=== PATIENT | female | born 1965 | race Caucasian/White ===

== ENCOUNTER 2025-06-12 23:06 | Emergency (ER) | payer OTHER, SELFPAY ==
[2025-06-12 23:26] VITALS: BP 146/84
--- NOTE | 2025-06-12 23:52 | ED.GENMED ---
History of Present Illness
General
Chief Complaint: Ear Problem
Source: patient
Exam Limitations: none
Time Seen by Provider: 06/12/25 23:30
Nursing documentation reviewed up to this point in time: agreed with
History of Present Illness
History of Present Illness:
60-year-old female past ministry of diabetes heart disease presenting to the emergency department today with concerns of right-sided ear discomfort. Has had some mild upper respiratory symptoms over the past few days now with worsening ear pain
today. She denies any chest pain shortness of breath nausea vomiting.
Review of Systems
Review of Systems
Allergies reviewed?: Yes
All Other Systems: ROS reviewed and negative except as documented in HPI and ROS
Phy Exam
Physical Exam
Physical Exam:
GENERAL: Alert , in no apparent distress
EYE: pupils equal and reactive
NECK: Supple, no significant adenopathy.
ENT: Bulging red right tympanic membrane ear canals are normal in appearance normal external ear. Does have postnasal drip and swollen boggy nasal turbinates o/p clr, mmm.
CARDIAC: Regular rate and rhythm .
LUNGS: Clear breath sounds bilaterally, no acute respiratory distress, no wheezes/rales/rhonchi
ABDOMEN: Soft, without focal tenderness, no r/g, no cvat
NEUROLOGICAL: Alert and oriented, no focal neuro deficits
SKIN: Warm and dry, skin intact.
MUSCULOSKELETAL: No edema, well perfused.
PSYCH: Normal and appropriate interaction.
Course
Orders/Labs/Results
Orders:
Orders
06/12/25 23:50
Amoxicillin 875 mg/Clav 125 mg [Augmentin 875 mg/125 mg] 1 tablet PO NOW STA
Vital Signs
Initial and Last Documented VS:
Initial Vital Signs
Temp Pulse Resp BP Pulse Ox
97.5 F 65 18 146/84 98
06/12/25 23:26 06/12/25 23:26 06/12/25 23:26 06/12/25 23:26 06/12/25 23:26
Last Documented Vital Signs
Temp Pulse Resp BP Pulse Ox
97.5 F 65 18 146/84 98
06/12/25 23:26 06/12/25 23:26 06/12/25 23:26 06/12/25 23:26 06/12/25 23:26
MDM/Problems Addressed
MDM/Problems Addressed:
60-year-old female presenting with concerns of right ear pain. Has had mild upper respiratory symptoms over the past few days as well as congestion. On arrival vital signs are normal patient no distress. Patient has obvious redness bulging and
discomfort to the right ear consistent with inner ear infection after. No evidence of referred pain. Plan for treatment with antibiotic and nasal steroid. Otherwise stable for discharge. Return precautions given.
*Pulse Oximetry
SaO2: 98
Oxygen Mode of Delivery: Room air
Patient hypoxic: no (98)
*Critical Care Note
Total Time (30-74mins, 75-104mins- exclusive of procedures): Not Applicable
ED Attending Note
-
Portions of this chart may have been created with voice recognition software.� Occasional wrong word or��sound alike� substitutions may have occurred due to the inherent limitations of voice recognition software.
Discharge Plan
Departure
Patient Disposition: Home (Routine Discharge)
Date of Disposition: 06/12/25
Time of Disposition: 23:52
Patient with high blood pressure during this ER visit?: No
Condition: Good
Covid-19: Not Applicable
Discharge Problem:
Otitis media, acute
Instructions: Serous Otitis Media (DC)
Prescriptions:
New
amoxicillin-pot clavulanate 875-125 mg tablet
1 tab PO BID 7 Days Qty: 14 0RF
fluticasone propionate [Flonase Allergy Relief] 50 mcg/actuation spray,suspension
1 spray intranasal BID Qty: 16 0RF
Referrals:
Aguilar Martinez DO [Family Provider]
Activity Restrictions/Additional Instructions:
You came to the emergency department today with concerns of ear discomfort. This appears to be consistent with an inner ear infection. Please take the prescribed medications and follow-up closely with your primary care doctor. Return for any
worsening, new or concerning symptoms.
Interventions
Interventions:
*Risk Screen - Suicide Last Done: 06/12/25 23:26
*Neglect/Abuse Screening Last Done: 06/12/25 23:26
Discharge Date and Time
Print Language: TONGAN
[2025-06-12] MEDS: TYLENOL 1000 MG PO (23:58)
[2025-06-12] MEDS: AUGMENTIN 875 MG/125 MG 1 TABLET PO (23:59)
== END 2025-06-13 00:05 | disposition home or self-care (01) ==
LOC: EMR 23:06
PROVIDERS: EMERGENCY PHYSICIAN Student in an Organized Health Care Education/Training Program; FAMILY PHYSICIAN Student in an Organized Health Care Education/Training Program
DX: H66.91 Otitis media, unspecified, right ear (principal); R09.81 Nasal congestion; E11.9 Type 2 diabetes mellitus without complications; I51.9 Heart disease, unspecified
CPT/HCPCS: 99283